=== PATIENT | female | born 1945 | race Caucasian/White ===

== ENCOUNTER 2022-01-04 05:04 | Inpatient (IN) ==
--- NOTE | 2021-12-08 14:09 | PAT Medication Instructions ---
Medication Instructions Date of Service December 08, 2021 Home Medications Medication Instructions Recorded pantoprazole 40 mg tablet,delayed 40 mg PO DAILY #90 tabs 04/18/21 release buspirone 15 mg tablet 15 mg PO TID #270 tabs 07/21/21 tramadol 50 mg tablet 50 mg PO BID PRN pain #60 tabs 10/28/21 trazodone 50 mg tablet 50 mg PO .qhs #90 tabs 11/30/21 pantoprazole 40 mg tablet,delayed release 40 mg PO DAILY buspirone 15 mg tablet 15 mg PO TID tramadol 50 mg tablet 50 mg PO BID PRN ascorbic acid (vitamin C) 1,000 mg tablet 1 g PO QAM cholecalciferol (vitamin D3) 50 mcg (2,000 unit) capsule 50 mcg PO QAM hydroxyzine HCl 25 mg tablet 25 mg PO BID PRN multivitamin 1 tab PO QAM risperidone 0.25 mg tablet 0.25 mg PO .qhs trazodone 50 mg tablet 50 mg PO .qhs alendronate 40 mg tablet 40 mg PO WK amlodipine 10 mg tablet 10 mg PO QAM atorvastatin 40 mg tablet 40 mg PO QPM duloxetine 60 mg capsule,delayed release 60 mg PO QAM hydrochlorothiazide 25 mg tablet 25 mg PO QAM losartan 100 mg tablet 100 mg PO QAM sitagliptin 100 mg tablet (Januvia) 100 mg PO TID Continue as directed pantoprazole 40 mg tablet,delayed release 40 mg PO DAILY alendronate 40 mg tablet 40 mg PO WK (do not take day of surgery) ASK your prescriber and surgeon risperidone 0.25 mg tablet 0.25 mg PO .qhs DO NOT take the morning of surgery ascorbic acid (vitamin C) 1,000 mg tablet 1 g PO QAM cholecalciferol (vitamin D3) 50 mcg (2,000 unit) capsule 50 mcg PO QAM multivitamin 1 tab PO QAM hydrochlorothiazide 25 mg tablet 25 mg PO QAM losartan 100 mg tablet 100 mg PO QAM sitagliptin 100 mg tablet (Januvia) 100 mg PO TID Take morning of surgery With a small sip of water, OTHERWISE NOTHING TO EAT OR DRINK AFTER MIDNIGHT: buspirone 15 mg tablet 15 mg PO TID tramadol 50 mg tablet 50 mg PO BID PRN(if needed) hydroxyzine HCl 25 mg tablet 25 mg PO BID PRN(if needed) amlodipine 10 mg tablet 10 mg PO QAM duloxetine 60 mg capsule,delayed release 60 mg PO QAM Take evening before surgery buspirone 15 mg tablet 15 mg PO TID tramadol 50 mg tablet 50 mg PO BID PRN(if needed) hydroxyzine HCl 25 mg tablet 25 mg PO BID PRN(if needed) trazodone 50 mg tablet 50 mg PO .qhs atorvastatin 40 mg tablet 40 mg PO QPM sitagliptin 100 mg tablet (Januvia) 100 mg PO TID Other Notes If you have any questions please call us at [phone] or [phone] or [phone] or [phone]
--- NOTE | 2021-12-15 13:33 | Anesthesiology Consultation ---
Date of Service December 15, 2021 Assessment & Plan (1) Encounter for pre-operative examination: - check BSG am DOS. - cardiac murmur: 2/6 systolic murmur noted. H/o MVP. No recent echocardiogram. Will request PCP obtain echo prior to surgery. Optimization note completed for PCP, message left requesting return call. - COVID screening: Per assessment on 12/15/2021: Travel screen negative, no known COVID-19 positive contacts or current COVID-19 related symptoms in past 2 weeks. Pt vaccinated. Surgeon arranging preop COVID testing, scheduled 01/02/2022. Awaiting results. Chart Review Chart Review: Pending: Refer to Additional Notes / Consult section and Patient seen in Pre Admission Testing Teaching & Discussion Pre-Anesthesia Teaching/Discussion Notes: Instructed NPO after midnight before surgery, except medications with 15 cc of water. Medication instructions provided according to the PAT guidelines. History Surgery Operation Date: 01/04/22 14:00 Proposed Procedures p Right Total Knee Arthroplasty - Javid Marin MD Height/Weight Height: 4 ft 11 in Weight: 66.1 kg Allergies Allergy/AdvReac Type Severity Reaction Status Date / Time No Known Allergies Allergy Verified 12/16/21 07:59 Medications Home Medications Medication Instructions Recorded Confirmed Last Taken pantoprazole 40 mg tablet,delayed 40 mg PO DAILY #90 tabs 04/18/21 12/16/21 Unknown release buspirone 15 mg tablet 15 mg PO TID #270 tabs 07/21/21 12/16/21 Unknown tramadol 50 mg tablet 50 mg PO BID PRN pain #60 tabs 10/28/21 12/16/21 Unknown ascorbic acid (vitamin C) 1,000 mg 1 g PO QAM 11/08/21 12/16/21 Unknown tablet cholecalciferol (vitamin D3) 50 50 mcg PO QAM 11/08/21 12/16/21 Unknown mcg (2,000 unit) capsule hydroxyzine HCl 25 mg tablet 25 mg PO BID PRN Anxiety 11/08/21 12/16/21 Unknown multivitamin 1 tab PO QAM 11/08/21 12/16/21 Unknown risperidone 0.25 mg tablet 0.25 mg PO .qhs 11/08/21 12/16/21 Unknown alendronate 40 mg tablet 40 mg PO WK 12/05/21 12/16/21 Unknown amlodipine 10 mg tablet 10 mg PO QAM 12/05/21 12/16/21 Unknown atorvastatin 40 mg tablet 40 mg PO QPM 12/05/21 12/16/21 Unknown duloxetine 60 mg capsule,delayed 60 mg PO QAM 12/05/21 12/16/21 Unknown release hydrochlorothiazide 25 mg tablet 25 mg PO QAM 12/05/21 12/16/21 Unknown losartan 100 mg tablet 100 mg PO QAM 12/05/21 12/16/21 Unknown sitagliptin 100 mg tablet (Januvia) 100 mg PO TID 12/05/21 12/16/21 Unknown trazodone 50 mg tablet 50 mg PO .qhs #90 tabs 12/15/21 12/16/21 Unknown Past Medical History Medical History (Updated 12/15/21 @ 13:47 by Sue Perez PA-C) Anxiety Depression Diabetes mellitus oral controlled Hearing deficit no H/A HLD (hyperlipidemia) HTN (hypertension) Mitral valve prolapse denies palpitations, dizziness or lightheadedness Osteoporosis lumbar spine, left hip Thyroid nodule 02/2021 1.2cm left lobe Patient denies h/o stroke, seizures, heart attack, heart failure, blood clots or blood transfusions. Exercise / Class Metabolic Activity II 4-5 Yardwork/Stairs/Walk up hill (denies CP or SOB with 1 FOS) Past Family History Family History Mother Diabetes Hypertension Cancer Father Diabetes Cancer Sister Pancreatic cancer Past Surgical History Surgical History (Updated 12/15/21 @ 13:48 by Sue Perez PA-C) H/O lumpectomy left breast x3-all benign History of colonoscopy Hx of appendectomy Hx of cholecystectomy Past Anesthesia History No Hx of Anesthesia Complications and No Family Hx of Anesthesia Complications History of PONV No Hx of PONV and No Hx of Motion Sickness Social History Smoking Status: Former smoker Do You Dip or Chew Tobacco: No Smoking End Date: ~15 years ago Hx Alcohol Use: Yes alcohol intake frequency: holidays/special occasions only Hx Substance Use: No substance use type: does not use Review of Systems Snoring, denies witnessed apneas. Patient denies chest pain, shortness of breath, dyspnea on exertion, reflux, fever, chills, cough, wheezing, or palpitations. Physical Exam Vital Signs Vitals BP 128/73 P 78 TEMP 98.7 SP02 99% on RA RESP 17 Physical Full cervical extension range of motion without pain TMD 3.5 finger breadths Mallampati Score 3 Dentition: intact, missing right lower side, several caps/crowns-none in front; denies chipped or loose teeth, implants or bridges Lungs: normal respiratory effort. Clear throughout to auscultation, no adventitious breath sounds Cardiac: regular rate and rhythm, grade 2/6 systolic murmur noted Carotid arteries: negative bruit bilat Lab Results Anesthesia Preop Results Results Anesthesia Widget: WBC 8.62 K/ul (4.8-10.8) 12/15/21 Hgb 13.4 g/dl (12.0-16.0) 12/15/21 Hct 38.1 % (34.1-44.9) 12/15/21 Plt 222 K/uL (130-400) 12/15/21 Na 132 mmol/L (136-145) L 12/15/21 K 4.1 mmol/L (3.5-5.1) 12/15/21 Cl 96 mmol/L (98-107) L 12/15/21 CO2 31 mmol/L (21-32) 12/15/21 BUN 18 mg/dl (6-23) 12/15/21 Creat 0.73 mg/dl (0.6-1.2) 12/15/21 Glucose Level 179 mg/dl (70-99(Fasting)) H 12/15/21 PT 10.5 Seconds (9.0-12.0) 12/15/21 PTT 25.5 Seconds (21.0-31.0) 12/15/21 INR 1.0 (0.9-1.1) 12/15/21 HA1c 6.4 % (4.5-5.6) H 12/15/21 Urine Color Yellow 12/15/21 Urine Appearance Clear (Clear) 12/15/21 Urine pH 5.5 (4.5-7.5) 12/15/21 Urine Specific [place] 1.009 (1.000-1.030) 12/15/21 Urine Protein Negative (Negative) 12/15/21 Urine Glucose (UA) Negative (Negative) 12/15/21 Urine Ketones Negative (Negative) 12/15/21 Urine Blood Negative (Negative) 12/15/21 Urine Nitrite Negative (Negative) 12/15/21 Urine Bilirubin Negative (Negative) 12/15/21 Urine Urobilinogen Negative (Negative) 12/15/21 Urine Leukocyte Esterase Negative (Negative) 12/15/21 Blood Type O Positive 12/15/21 Antibody Screen NEGATIVE 12/15/21 Testing Electrocardiogram Date: 12/15/21 NSR, rate 75 bpm Indeterminate axis Chest X-Ray Date: 12/15/21 No pneumothorax. No pleural effusions. The cardiac silhouette is top normal in size. No evidence for pulmonary edema. No focal lung consolidations to suggest pneumonia. Degenerative changes within the thoracolumbar spine. There is an old mild anterior wedge-shaped compression deformity at T12. Mild interstitial thickening at the lung bases. IMPRESSION: No acute process.
--- NOTE | 2021-12-31 20:36 | History & Physical Report ---
Date of Service December 31, 2021 Assessment & Plan (1) Primary osteoarthritis of right knee: Plan: Treatment options discussed with patient. She has failed conservative measures and would like to proceed with surgical intervention. Risks, benefits and alternatives to surgery including but not limited to infection, DVT, pain, stiffness, need for revision surgery, damage to blood vessels, damage to nerves, PE, , were discussed with the patient and they wish to proceed. Plan on right total knee arthroplasty scheduled for [facility] on 01/04/[address] Marin. Will plan on aspirin 81mg BID x 1 mo post op for DVT prophylaxis. Plan on HHPT vs OPPT. All questions answered. F/u post op. History of Present Illness Chief Complaint: Right knee pain Primary Care Provider: Saadia Reza, DO 76 yo female with PMHx significant for HTN, high cholesterol, DM2, MVP who presents with ongoing right knee pain. Pain is interfering with her daily activities. She has failed conservative measures and would like to proceed with knee replacement. Patient denies headaches, sweats, fevers, chills, double vision, blurred vision, cough, sore throat, dysphagia, chest pain, sob, wheezing, n/v/d/c, numbness, tingling, fatigue, urinary symptoms, mood disorders. ROS positive for right knee pain and stiffness. Allergies Allergy/AdvReac Type Severity Reaction Status Date / Time No Known Allergies Allergy Verified 12/19/21 14:55 Home Medications Medication Instructions Recorded Confirmed Type pantoprazole 40 mg tablet,delayed 40 mg PO DAILY #90 tabs 04/18/21 12/19/21 Rx release buspirone 15 mg tablet 15 mg PO TID #270 tabs 07/21/21 12/19/21 Rx tramadol 50 mg tablet 50 mg PO BID PRN pain #60 tabs 10/28/21 12/19/21 Rx ascorbic acid (vitamin C) 1,000 mg 1 g PO QAM 11/08/21 12/19/21 History tablet cholecalciferol (vitamin D3) 50 50 mcg PO QAM 11/08/21 12/19/21 History mcg (2,000 unit) capsule hydroxyzine HCl 25 mg tablet 25 mg PO BID PRN Anxiety 11/08/21 12/19/21 History multivitamin 1 tab PO QAM 11/08/21 12/19/21 History risperidone 0.25 mg tablet 0.25 mg PO .qhs 11/08/21 12/19/21 History alendronate 40 mg tablet 40 mg PO WK 12/05/21 12/19/21 History amlodipine 10 mg tablet 10 mg PO QAM 12/05/21 12/19/21 History atorvastatin 40 mg tablet 40 mg PO QPM 12/05/21 12/19/21 History hydrochlorothiazide 25 mg tablet 25 mg PO QAM 12/05/21 12/19/21 History losartan 100 mg tablet 100 mg PO QAM 12/05/21 12/19/21 History sitagliptin 100 mg tablet (Januvia) 100 mg PO TID 12/05/21 12/19/21 History trazodone 50 mg tablet 50 mg PO .qhs #90 tabs 12/15/21 12/19/21 Rx duloxetine 60 mg capsule,delayed 60 mg PO QAM #90 caps 12/27/21 Rx release Past Med/Surg History Medical History (Updated 12/31/21 @ 20:34 by Bertram Payotn PA-C) Anxiety Depression Diabetes mellitus oral controlled Hearing deficit no H/A HLD (hyperlipidemia) HTN (hypertension) Mitral valve prolapse denies palpitations, dizziness or lightheadedness Osteoporosis lumbar spine, left hip Thyroid nodule US 02/2021 1.2cm left lobe Surgical History (Updated 12/15/21 @ 13:48 by Sue Perez PA-C) H/O lumpectomy left breast x3-all benign History of colonoscopy Hx of appendectomy Hx of cholecystectomy Family History Mother Diabetes Hypertension Cancer Father Diabetes Cancer Sister Pancreatic cancer Social History Smoking Status: Former smoker Second Hand Exposure: No; Hx Alcohol Use: Yes Hx Substance Use: No Preferred Language: Azeri Communication Ability: Effective Visual Impairment: No Limitations Hearing Ability: Hard of Hearing Farmworkers Required: No Beliefs That Will Affect Care: None marital status: Current Living Situation: Family Current Living Situation Comment: Son and his family current occupational status: retired How many Children do You have: 2 Feels Safe at Home: Yes Childhood Exposure to Second-Hand Smoke: Yes caffeine: Yes during the past year weight has: decreased > 10 lbs Physical Activity Frequency: Daily Seatbelt Use: always Sunscreen Use: Yes (sometimes) Assistive Devices: Glasses Review of Systems All systems reviewed & are unremarkable except as noted in HPI & below Physical Exam Constitutional: well developed and well nourished; no acute distress Eyes: PERRL, conjunctivae normal, anicteric sclerae ENMT: external ear and nose normal, oropharynx normal Neck: trachea midline, no thyromegaly Respiratory: normal respiratory effort, lungs clear to auscultation Cardiovascular: RRR, no murmur, no edema Musculoskeletal: right knee: Varus alignment. Mild effusion. Medial joint line and medial and lateral patellar facet tenderness. Positive Fred's, stable to valgus and varus stress. ROM is 0-130 degrees. Skin: no rashes, warm and dry Neurologic: patellar DTR's 2+ bilat, sensation intact Psychiatric: A+Ox3, euthymic affect Results & Data ([facility]) Diagnostic Findings Right knee: Endstage osteoarthritis right knee, bone on bone medial compartment with bone loss medially. There is tricompartmental osteophyte formation.
[2022-01-04] MEDS ORDERED: TRANEXAMIC ACID 1,000 MG **IV Pre-op IV SCH (06:00)
[2022-01-04] MEDS ORDERED: ceFAZolin 1000MG 1,000 MG/7.5 ML SYR IV SCH (06:00)
[2022-01-04] MEDS ORDERED: GABAPENTIN 300 MG CAP PO SCH (06:00)
[2022-01-04] MEDS ORDERED: FAMOTIDINE 20 MG TAB PO SCH (06:00)
[2022-01-04] MEDS ORDERED: CeleBREX 200 MG CAP PO SCH (06:00)
[2022-01-04] MEDS ORDERED: ACETAMINOPHEN 500 MG TAB PO SCH (06:00)
[2022-01-04] MEDS ORDERED: TRANEXAMIC ACID 1,000 MG **IV Intra-op IV SCH (06:00)
[2022-01-04] MEDS ORDERED: METOCLOPRAMIDE HCL 10 MG TABLET PO SCH (06:00)
[2022-01-04] MEDS ORDERED: LR 500ML BOLUS, THEN 15ML/HR IV SCH (06:00)
[2022-01-04] MEDS ORDERED: ROPIVACAINE 0.5% HCL/PF 150 MG, BUPIVACAINE 0.75% MPF 20 ML, EPINEPHrine 30MG/30ML (OR ... INSTIL SCH (06:00)
[2022-01-04] MEDS ORDERED: BUPIVACAINE 0.5 % 5 MG/1 ML PF 10ML VIAL ONE (06:24)
[2022-01-04] MEDS ORDERED: ROPIVACAINE 0.5% 5 MG/ML 30 ML VIAL ONE (06:25)
[2022-01-04] MEDS ORDERED: MIDAZOLAM HCL 1 MG/ML 2ML VIAL ONE (06:58)
[2022-01-04] MEDS ORDERED: fentaNYL citrate 100 MCG/2 ML VIAL ONE (06:58)
[2022-01-04] MEDS ORDERED: ORTHO JOINT ANESTHETIC ONE (07:00)
--- NOTE | 2022-01-04 07:09 | History & Physical Bridge Note ---
Date of Service January 04, 2022 History & Physical Bridge Note I have examined the patient, reviewed the History & Physical and in the interval since the performance of the History & Physical I have noted the following changes of clinical significance: no changes noted
[2022-01-04] MEDS ORDERED: ONDANSETRON INJ 2 MG/ML 2 ML VIAL IV PRN ×2 (07:37→10:46)
[2022-01-04] MEDS ORDERED: ATROPINE SULFATE 0.1 MG/ML 10ML SYR IV PRN (07:37)
[2022-01-04] MEDS ORDERED: PROMETHAZINE HCL 12.5 MG in SODIUM CHLORIDE 0.9% 50 ML IV PRN (07:37)
[2022-01-04] MEDS ORDERED: fentaNYL citrate 100 MCG/2 ML VIAL IV PRN (07:37)
[2022-01-04] MEDS ORDERED: ePHEDrine sulfate 50 MG/ML AMP IV PRN (07:37)
[2022-01-04] MEDS ORDERED: HYDROmorphone INJ 2 MG/ML SYR/VIAL IV PRN (07:37)
[2022-01-04] MEDS ORDERED: PROPOFOL IV EMULSION 10 MG/ML 20 ML VIAL IV ONE (07:43)
[2022-01-04] MEDS ORDERED: ePHEDrine sulfate 50 MG/ML AMP ONE (08:30)
--- NOTE | 2022-01-04 09:24 | Operative Report ---
Post Operative Report Pre & Post Diagnosis Operation Date: 01/04/22 07:15 Pre-Op Diagnosis: Unilateral Primary Osteoarthritis, Right Knee Post-Op Diagnosis: Unilateral Primary Osteoarthritis, Right Knee I identified the patient and participated in the time-out.: Yes Procedure Operation Date: 01/04/22 07:15 Actual Procedures p Right Total Knee Arthroplasty(Right) - Javid Marin MD Surgeon Javid Marin MD Digital Operations Analyst Giuseppe CLEMONS Estimated Blood Loss 3 Findings Consistent with Post-Op Diagnosis Specimens Bone cuts Drains 2 Hemovac Anesthesia Type MAC Spinal Regional Complications none Disposition Disposition: Recovery Room Indications 76-year-old female with bilateral knee osteoarthritis more severe on the right knee with [id number] medial compartment subluxation of the femur medial in the tibia. Description of Procedure Patient was taken to the operating room placed supine on the operating table and anesthetized under spinal MAC regional block anesthesia. Exam under anesthesia demonstrated varus knee no pseudo instability good range of motion 0 through 130 degrees range of motion. A pneumatic tourniquet was placed about the thigh of the right lower extremity. The right lower extremity was prepped and draped in usual sterile fashion. The leg was elevated exsanguinated with an Esmarch bandage and the pneumatic tourniquet was raised to 300 mm mercury. An anterior incision was made across the right knee. The skin was incised longitudinally subcutaneous flaps were elevated and an incision was made through the medial retinaculum extending up into the mid third of the quadriceps tendon and extended down to the medial tibial tubercle. Intra-articular findings demonstrated medial compartment osteoarthritis with [id number] medial compartment with eburnated bone and patellofemoral osteoarthritis with a chronic medial meniscus tear. There were loose bodies noted.. The knee was exposed by excising the infrapatellar fat pad, excising the meniscal remnants and anterior cruciate ligament. Any inflamed synovial tissue was resected. The fat pad over the anterior femur was resected for placement of the component in that area. The lateral synovial bands were release. The femur was exposed. The custom femoral cutting block was pinned in position. We assessed the fit and I did not feel the fit was satisfactory to guarantee appropriate alignment so I used standard instrumentation with an intramedullary drill and the femoral canal and set the distal femoral cut at 5 degree valgus cut with a standard resection. The distal femoral cut was made with the oscillating saw. The size 7, 4-in-1 cutting block was placed. The anterior and posterior chamfer cuts were made. The knee was extended and a subperiosteal peel lateral release was performed around the patella. The patella width was measured and width was reproduced using freehand cut technique. The 32 x 8.5 millimeter symmetrical patella was used. 3 drill holes are made for the pegs. The tibia was exposed. A custom tibial cutting block was positioned and drill holes were made for the cutting guide. Cutting guide was placed and the proximal cut was made with the oscillating saw. All osteophytes were resected. The lamina managing consultant was used to assess ligamentous balance and the ligaments were balanced in extension and flexion. The tibia was reexposed and measured for a size C tibial component. This was externally rotated in line with the tibial tubercle and the fixation pins were drilled. The proximal tibia was fashioned with the drill and punch. The size 7 CR femoral trial was inserted. The trial MC inserts were used. The 12 mm insert gave balanced ligaments through full range of motion. The patella tracked centrally. the trials were removed. The orthomix anesthetic cocktail was injected per protocol. The knee was then copiously irrigated with pulsatile lavage saline solution. The final components were cemented with Refobacin bone cement. The final components were 7 right narrow CR persona femoral component, C tibial component, 12 MC right tibial polyethylene, 32 x 8.5 symmetrical patella. After the cement cured with the knee in full extension the Betadine soak was used per protocol. The knee joint was copiously irrigated with pulsatile lavage saline solution . 2 drains were brought out laterally and connected to a Hemovac. The quadriceps tendon and medial retinaculum were closed with interrupted [id number] #1 Vicryl sutures. The knee was taken through a full range of motion and repair was secure. The subcutaneous tissues were closed with 2-0 Vicryl sutures and skin was closed with henri. A Silverlon sterile dressing was applied and the patient tolerated the procedure well. Giuseppe CLEMONS my physician legal executive assistant, assisted as lpn or medical assistant and was integral part in all aspects of the procedure. He assisted in soft tissue retraction, instrument management ,leg positioning, the closure and will participate in the postoperative care of the patient. I attest to the content of the Intraoperative Record and any orders documented therein. Any exceptions are noted below.
--- NOTE | 2022-01-04 10:17 | XRay Report ---
XR knee RT 1 or 2V routine CLINICAL HISTORY: Surgical Post Op TECHNIQUE: 2 views of the right knee were obtained. Comparison: None available at the time of this dictation. FINDINGS: Patient is status post total knee arthroplasty with expected postsurgical changes including soft tiss ue swelling and subcutaneous emphysema. No periarticular lucency or hardware fracture is seen. IMPRESSION: Expected postoperative appearance status post placement of total knee arthroplasty. ACT 112: Negative or not required by law. Electronically signed by: Tacos Rodriguez M.D. 01/04/2022 10:16 AM
[2022-01-04] MEDS ORDERED: bisacodyL 10 MG SUPP PR PRN (10:46)
[2022-01-04] MEDS ORDERED: PHARMACY GLYCEMIC MGMT CONSULT PRN (10:46)
[2022-01-04] MEDS ORDERED: MAGNESIUM HYDROXIDE SUSP 30 ML UDC PO PRN (10:46)
[2022-01-04] MEDS ORDERED: NALOXONE HCL 0.4 MG/1 ML VIAL/CARP IV PRN (10:46)
[2022-01-04] MEDS ORDERED: HYDROmorphone INJ 0.5 MG/0.5 ML SYR IV PRN (10:46)
[2022-01-04] MEDS: SODIUM CHLORIDE 0.9% 1000ML 1,000 ML IV SCH ×2 (11:37→20:14)
[2022-01-04] MEDS ORDERED: GLUCOSE 10 TAB/TUBE PO PRN (11:45)
[2022-01-04] MEDS ORDERED: DEXTROSE 50% 50 ML SYRINGE IV PRN (11:45)
[2022-01-04] MEDS ORDERED: GLUCOSE 40% GEL 15 GM TUBE PO PRN (11:45)
[2022-01-04] MEDS ORDERED: CARBOHYDRATES FOR HYPOGLYCEMIA PO PRN (11:45)
[2022-01-04] MEDS ORDERED: GLUCAGON FOR INJ 1 MG VIAL IM PRN (11:45)
--- NOTE | 2022-01-04 12:06 | Pharmacy Report ---
Pharmacy Glycemic Short Note 2 - Date of Service January 04, 2022 - Glycemic Short BSG Results (Last 24 hours): 01/04/22 01/04/22 01/04/22 05:36 09:35 11:45 POC Glucose 144 H 144 H 153 H OUTPATIENT ANTIDIABETIC REGIMEN: * Sitagliptin 100 mg PO TID HbA1c: 6.4% (12/15/21) ASSESSMENT: * is a 76 year old female s/p right TKA POD #0 * No perioperative steroids administered * Well-controlled T2DM as an outpatient (A1c of 6.4% on sitagliptin only) * Preop BSG of 144 mg/dL and postop BSG of 153 mg/dL * Given elevated fasting BSG, will give conservative basal dose x 1 today with weight-based stress of 2 bolus PLAN FOR INPATIENT GLYCEMIC CONTROL: * Hold outpatient oral diabetes medications * Consider restarting tomorrow morning * Basal insulin * Lantus 7 units SQ x 1 (~0.1 unit/kg) * Bolus insulin * NovoLog per scale ACHS or Q6hrs while NPO * Goal Range: Low 110 mg/dL - High 140 mg/dL * Correction Factor: 35 mg/dL/unit * Nutritional / Prandial insulin per carb ratio of 1 unit per 12 grams CHO consumed
--- NOTE | 2022-01-04 12:14 | Anesthesiology Progress Note ---
Date of Service January 04, 2022 Anesthesia Post Procedure Vital Signs Vital Signs: Temp Pulse Pulse Resp BP Pulse Ox O2 Del Method 01/04/22 11:30 36.2 C L 71 18 142/68 H 100 Room Air 01/04/22 11:00 36.5 C 80 13 109/61 97 Room Air 01/04/22 10:45 36.5 C 77 13 115/54 L 98 Room Air 01/04/22 10:30 36.5 C 74 13 119/59 L 98 Room Air 01/04/22 10:20 74 12 119/55 L 99 Room Air 01/04/22 10:10 82 14 119/61 97 Room Air 01/04/22 10:00 74 18 120/66 99 Room Air 01/04/22 09:50 73 12 130/66 98 Nasal Cannula 01/04/22 09:40 73 14 129/78 100 Room Air 01/04/22 09:34 36.8 C 81 16 124/82 99 Room Air 01/04/22 05:47 36.8 C 87 20 167/69 H 100 Room Air O2 Flow Rate 01/04/22 11:30 01/04/22 11:00 01/04/22 10:45 01/04/22 10:30 01/04/22 10:20 01/04/22 10:10 01/04/22 10:00 01/04/22 09:50 3 01/04/22 09:40 01/04/22 09:34 01/04/22 05:47 Pain Intensity Right Knee: Pain Intensity: 0 Transfer of Care Handoff Completed per policy Notes Mental Status: alert / awake / arousable and participated in evaluation Nausea / Vomiting: adequately controlled Pain: adequately controlled Airway Patency, RR, SpO2: stable & adequate BP & HR: stable & adequate Hydration State: stable & adequate Neuraxial Anesthesia: was administered and sensory block is resolving Anesthetic Complications: no major complications apparent and Pt Satisfied with anesthetic care
[2022-01-04] MEDS ORDERED: LANTUS PER UNIT CHARGE SQ ONE ×2 (12:15→16:30)
[2022-01-04] MEDS: INSULIN ASPART PER UNIT SC SCH ×3 (12:46→21:03)
[2022-01-04] MEDS ORDERED: SITagliptin PHOSPHATE 100 MG TAB PO SCH (14:00)
[2022-01-04] MEDS: ACETAMINOPHEN 500 MG TAB PO SCH ×2 (14:09→21:08)
[2022-01-04] MEDS: busPIRone 15 MG TAB PO SCH ×2 (14:09→21:09)
[2022-01-04] MEDS: ceFAZolin 1000MG 1,000 MG/7.5 ML SYR IV SCH (16:46)
[2022-01-04] MEDS: hydrOXYzine HCl 25 MG TAB PO PRN (21:05)
[2022-01-04] MEDS: ASPIRIN 81 MG ECTAB PO SCH (21:07)
[2022-01-04] MEDS: risperiDONE 0.5 MG TABLET PO SCH (21:08)
[2022-01-04] MEDS: ATORVASTATIN 40 MG TAB PO SCH (21:09)
[2022-01-04] MEDS: DOCUSATE SODIUM 100 MG CAP PO SCH (21:09)
[2022-01-04] MEDS: SENNA 8.6 MG TAB PO SCH (21:09)
[2022-01-04] MEDS: traZODone HCL 50 MG TAB PO SCH (21:12)
[2022-01-05] MEDS: ceFAZolin 1000MG 1,000 MG/7.5 ML SYR IV SCH (00:28)
[2022-01-05] MEDS: oxyCODONE HCL IR 5 MG TAB (IMMEDIATE RELEASE) PO PRN ×3 (04:32→18:05)
[2022-01-05] MEDS: ACETAMINOPHEN 500 MG TAB PO SCH ×3 (05:39→21:16)
[2022-01-05 06:22] LABS: Hematocrit (blood only) 30.6 % (34.1-44.9); Hemoglobin 10.5 g/dl (12.0-16.0); Mean Corpuscular Hemoglobin 30.2 pg (25.0-34.0); Mean Corpuscular Hgb Conc 34.3 g/dL (32.0-36.0); Mean Corpuscular Volume 87.9 fL (80.0-100.0); Mean Platelet Volume 9.1 fL (9.4-12.3); Platelet Count 170 K/uL (130-400); RDW Coefficient of Variation 12.1 % (11.5-14.5); RDW Standard Deviation 38.9 fL (36.4-46.3); Red Blood Count 3.48 M/uL (3.93-5.22); White Blood Count 9.26 K/ul (4.8-10.8)
[2022-01-05 06:50] LABS: BUN Creatinine Ratio 23.4 (10-20); Calcium 8.2 mg/dl (8.5-10.1); Creatinine Clr Calc Pharmacy 63.7 ml/min; Est GFR (African American) 101.9 ml/min; Est GFR (Non-African American) 87.9 ml/min; Potassium 3.7 mmol/L (3.5-5.1)
[2022-01-05] MEDS: PANTOprazole 40 MG TAB PO SCH (07:26)
[2022-01-05] MEDS: DULoxetine HCL 60 MG CAP PO SCH (07:26)
[2022-01-05] MEDS: amLODIPine BESYLATE 5 MG TAB PO SCH (07:26)
[2022-01-05] MEDS: CHOLECALCIFEROL 1,000 UNITS 25 MCG TAB PO SCH (07:26)
[2022-01-05] MEDS: busPIRone 15 MG TAB PO SCH ×3 (07:27→21:17)
[2022-01-05] MEDS: ASPIRIN 81 MG ECTAB PO SCH ×2 (07:27→21:16)
[2022-01-05] MEDS: LOSARTAN POTASSIUM 50 MG TAB PO SCH (07:27)
[2022-01-05] MEDS: MULTIVITAMIN TAB PO SCH (07:27)
[2022-01-05] MEDS: ASCORBIC ACID 500 MG TAB PO SCH (07:27)
[2022-01-05] MEDS: DOCUSATE SODIUM 100 MG CAP PO SCH ×2 (07:28→21:17)
--- NOTE | 2022-01-05 07:45 | Hospitalist Consultation ---
Date of Consultation January 05, 2022 Assessment & Plan (1) Primary osteoarthritis of right knee: POD #1 s/p RIGHT TKA with Dr Marin. EBL 3 hgb 13.4--> 10.4 acute blood loss anemia from surgery and dilutional from IVF PT/OT/pain management/bowel regimen per primary service ASA 81mg BID for DVT prophylaxis ordered Patient hopeful for rehab at [place] -> has not yet seen therapy but lives alone and worried son won't be able to stay with her 18/12 (2) Hyponatremia: chronic, ?related to HCTZ use, PCP notes possible consider decreasing dose to 12.5mg if persistant TSH wnl earlier this year ECHO normal recently, no evidence of heart failure on exam Could also have contributions from tramadol use as rx for 50mg BID prn on home meds Na Will decrease HCTZ for am to 12.5mg and rec continue that dose at discharge for now BMP in AM (3) HTN (hypertension): BP stable but borderline lower side Was given HCTZ 25mg, losartan 100mg and amlodipine 10mg daily at ~730 am scheduled for 9 No lightheaded/dizziness reported decreased HCTZ for am Monitor (4) HLD (hyperlipidemia): Remains on atorvastatin 40mg HS (5) Diabetes mellitus: Last A1c 6.28 November 2021 On Januvia 100mg TID at home, however did not prior overdose attempt as below ISS scale ordered while inpatient, BSGs acceptable (6) Depression: anxiety and depression -- stable except worried about not qualifying for rehab of note, hospitalized at [facility] from 10/29-11/07 due to increased depression after attempting overdose on Januvia Continues on cymbatla 60mg daily, buspar 10mg TID, risperdal 0.25mg HS, hyd roxyzine 25mg BID prn, trazodone 50mg HS (7) Anxiety: as above (8) Thyroid nodule: stable nodule on imaging last year TSH wnl 0.605 May 2021 states she has f/u US for monitoring scheduled in February with PCP Short. also with hx GERD, on protonix 40mg daily Also has +murmur, hx MVP --> echo outpatient prior to surgery acceptable no signif valvular heart disease Plan Thank you for allowing hospitalist to participate in the care of Ms Handley. Hospitalist will chart check in AM/see if needed if remains inpatient Please call with any questions/concerns. Supervising Physician Co-Signing Physician Notes PA Supervision Note: I personally saw and examined the patient. I verified all dixon points and agree with DEONTE Perkins with the following exceptions and/or additions: S-patient feeling much better in the evening after receiving 2 oxycodones instead of 1. Pain is controlled. She is ambulating to and from the bathroom with a rolling walker on her own and is feeling like she could go home tomorrow with home health. Denies any other concerns O- Vitals reviewed Gen: AAOx3, NAD HEENT: Anicteric sclerae, EOMI CV: RRR no mgr nl S1S2 Pulm: CTAB no wcr Abd: +BS soft NT ND no masses or hernias Ext: Right lower extremity in Logan wrap, drain in place draining bloody fluid Skin: No rashes, warm/dry Neuro: Full strength throughout Laboratory values reviewed A/C-89-pvfz-old female here with right TKA, hospitalist consult for medical management Patient is doing very well Plan outlined as above Hospitalist service will sign off at this time History of Present Illness Reason for Consultation: medical management Requesting Physician: Dr Marin Attending Physician: Javid Marin MD History of Present Illness 76 yo female with PMHx significant for HTN, HLD, DM, depression/anxiety, GERD, hyponatremia, hx MVP presented for RIGHT total knee arthroplasty with Dr Marin on 01/04. Seen in room 315 POD#1, doing well. Sitting up in chair, has not yet worked with therapy but she is hopeful for some rehab as lives alone and son not able to be there 18/12. Pain controlled but a little sore today. States eating/drinking no issue and passing gas but only effective is her chewy metamucil and will place order can take her home dose. Had prior hospitalization with blow outs and had been refusing stool softeners. Got BP meds this morning and not lightheaded/dizziness currently. Discussed would reduce HCTZ to 12.5mg for AM and at d/c given low Na and borderline lower BPs as she states her BPs have been much better. No fever/chills, chest pain, shortness of breath, abdominal pain, nausea or vomiting at present time. Will see how she does with therapy but if rec'd rehab will touch base with CM. Questions/concerns addressed at this time. Allergies Allergy/AdvReac Type Severity Reaction Status Date / Time No Known Allergies Allergy Verified 01/04/22 05:33 Home Medications Medication Instructions Recorded Confirmed Type pantoprazole 40 mg tablet,delayed 40 mg PO DAILY #90 tabs 04/18/21 01/04/22 Rx release buspirone 15 mg tablet 15 mg PO TID #270 tabs 07/21/21 01/04/22 Rx tramadol 50 mg tablet 50 mg PO BID PRN pain #60 tabs 10/28/21 01/04/22 Rx ascorbic acid (vitamin C) 1,000 mg 1 g PO QAM 11/08/21 01/04/22 History tablet cholecalciferol (vitamin D3) 50 50 mcg PO QAM 11/08/21 01/04/22 History mcg (2,000 unit) capsule hydroxyzine HCl 25 mg tablet 25 mg PO BID PRN Anxiety 11/08/21 01/04/22 History multivitamin 1 tab PO QAM 11/08/21 01/04/22 History risperidone 0.25 mg tablet 0.25 mg PO .qhs 11/08/21 01/04/22 History alendronate 40 mg tablet 40 mg PO WK 12/05/21 01/04/22 History amlodipine 10 mg tablet 10 mg PO QAM 12/05/21 01/04/22 History atorvastatin 40 mg tablet 40 mg PO QPM 12/05/21 01/04/22 History hydrochlorothiazide 25 mg tablet 25 mg PO QAM 12/05/21 01/04/22 History losartan 100 mg tablet 100 mg PO QAM 12/05/21 01/04/22 History sitagliptin 100 mg tablet (Januvia) 100 mg PO DAILY 12/05/21 01/05/22 History trazodone 50 mg tablet 50 mg PO .qhs #90 tabs 12/15/21 01/04/22 Rx duloxetine 60 mg capsule,delayed 60 mg PO QAM #90 caps 12/27/21 01/04/22 Rx release acetaminophen 500 mg tablet 1,000 mg PO Q8 14 days #84 tabs 01/05/22 Rx (Tylenol Extra Strength) aspirin 81 mg tablet,delayed 81 mg PO BID 30 days #60 tabs 01/05/22 Rx release oxycodone 5 mg tablet 5 mg PO Q4H PRN pain #30 tabs 01/05/22 Rx polyethylene glycol 3350 17 gram 17 g PO DAILY PRN constipation #5 01/05/22 Rx oral powder packet (Miralax) ea Patient History Medical History Anxiety Depression Diabetes mellitus oral controlled Hearing deficit no H/A HLD (hyperlipidemia) HTN (hypertension) Mitral valve prolapse denies palpitations, dizziness or lightheadedness Osteoporosis lumbar spine, left hip Thyroid nodule US 02/2021 1.2cm left lobe Surgical History H/O lumpectomy left breast x3-all benign History of colonoscopy Hx of appendectomy Hx of cholecystectomy Family History Mother Diabetes Hypertension Cancer Father Diabetes Cancer Sister Pancreatic cancer Social History Smoking Status: Former smoker Smoking End Date: ~15 years ago; Second Hand Exposure: No; Do You Dip or Chew Tobacco: No; Tobacco Cessation Education Requested by Patient: No Hx Alcohol Use: Yes Hx Substance Use: No Preferred Language: Kiswahili Communication Ability: Effective Visual Impairment: No Limitations Hearing Ability: Hard of Hearing Senior Buyer Planner Required: No Beliefs That Will Affect Care: None marital status: Current Living Situation: Family Current Living Situation Comment: Son and his family current occupational status: retired How many Children do You have: 2 Other Information That Helps Us Care for You: No Feels Safe at Home: Yes Safety Concerns: Feels Safe At This Time Childhood Exposure to Second-Hand Smoke: Yes caffeine: Yes during the past year weight has: decreased > 10 lbs Physical Activity Frequency: Daily Seatbelt Use: always Sunscreen Use: Yes (sometimes) Assistive Devices: Walker Review of Systems Review of Systems: All systems reviewed & are unremarkable except as noted in HPI & below Physical Exam Physical Exam: General: WD/WN elderly female sitting up in chair, NAD HEENT; pupils equal and reactive, mmm, trachea midline without deviation Resp: CTAB, no w/c/r, on room air CV: RRR, faint murmur, no rub/gallop, no calf tenderness, pulses palpable GI: +BS, soft, nontender : no siegel MSK/Neuro: RLE with logan wrap/dressing c/d/i, hemovac functioning, pulses palable, cap refill wnl Psych: aox3, pleasant and cooperative but anxious if does too well for rehab Results & Data Results & Data ([facility]) Vital Signs (Past 12 Hours) Vital Signs Temp Pulse Pulse Resp BP Pulse Ox O2 Del Method 01/05/22 07:00 36.7 C 82 16 104/57 L 93 Room Air 01/05/22 02:19 36.7 C 80 16 136/72 97 Room Air 01/04/22 22:19 36.9 C 73 16 122/71 92 Room Air Laboratory Results 01/05/22 01/05/22 01/05/22 Range/Units 08:13 05:55 05:55 WBC 9.26 (4.8-10.8) K/ul RBC 3.48 L (3.93-5.22) M/uL Hgb 10.5 L (12.0-16.0) g/dl Hct 30.6 L (34.1-44.9) % MCV 87.9 (80.0-100.0) fL MCH 30.2 (25.0-34.0) pg MCHC 34.3 (32.0-36.0) g/dL RDW Std Deviation 38.9 (36.4-46.3) fL RDW Coeff of Vahe 12.1 (11.5-14.5) % Plt Count 170 (130-400) K/uL MPV 9.1 L (9.4-12.3) fL Sodium 134 L (136-145) mmol/L Potassium 3.7 (3.5-5.1) mmol/L Chloride 103 (98-107) mmol/L Carbon Dioxide 26 (21-32) mmol/L Anion Gap 5 (3-11) BUN 15 (6-23) mg/dl Creatinine 0.64 (0.6-1.2) mg/dl Est Cr Clr Drug Dosing 63.7 ml/min Est GFR ( Amer) 101.9 ml/min Est GFR (Non-Af Amer) 87.9 ml/min BUN/Creatinine Ratio 23.4 H (10-20) Glucose 162 H (70-99(Fasting)) mg/dl POC Glucose 175 H (70-99) mg/dl Calcium 8.2 L (8.5-10.1) mg/dl 01/04/22 01/04/22 01/04/22 Range/Units 20:56 16:56 11:45 WBC (4.8-10.8) K/ul RBC (3.93-5.22) M/uL Hgb (12.0-16.0) g/dl Hct (34.1-44.9) % MCV (80.0-100.0) fL MCH (25.0-34.0) pg MCHC (32.0-36.0) g/dL RDW Std Deviation (36.4-46.3) fL RDW Coeff of Vahe (11.5-14.5) % Plt Count (130-400) K/uL MPV (9.4-12.3) fL Sodium (136-145) mmol/L Potassium (3.5-5.1) mmol/L Chloride (98-107) mmol/L Carbon Dioxide (21-32) mmol/L Anion Gap (3-11) BUN (6-23) mg/dl Creatinine (0.6-1.2) mg/dl Est Cr Clr Drug Dosing ml/min Est GFR ( Amer) ml/min Est GFR (Non-Af Amer) ml/min BUN/Creatinine Ratio (10-20) Glucose (70-99(Fasting)) mg/dl POC Glucose 85 96 153 H (70-99) mg/dl Calcium (8.5-10.1) mg/dl 01/04/22 Range/Units 09:35 WBC (4.8-10.8) K/ul RBC (3.93-5.22) M/uL Hgb (12.0-16.0) g/dl Hct (34.1-44.9) % MCV (80.0-100.0) fL MCH (25.0-34.0) pg MCHC (32.0-36.0) g/dL RDW Std Deviation (36.4-46.3) fL RDW Coeff of Vahe (11.5-14.5) % Plt Count (130-400) K/uL MPV (9.4-12.3) fL Sodium (136-145) mmol/L Potassium (3.5-5.1) mmol/L Chloride (98-107) mmol/L Carbon Dioxide (21-32) mmol/L Anion Gap (3-11) BUN (6-23) mg/dl Creatinine (0.6-1.2) mg/dl Est Cr Clr Drug Dosing ml/min Est GFR ( Amer) ml/min Est GFR (Non-Af Amer) ml/min BUN/Creatinine Ratio (10-20) Glucose (70-99(Fasting)) mg/dl POC Glucose 144 H (70-99) mg/dl Calcium (8.5-10.1) mg/dl Diagnostic Findings Knee X-Ray 01/04/22 09:40 XR knee RT 1 or 2V routine CLINICAL HISTORY: Surgical Post Op TECHNIQUE: 2 views of the right knee were obtained. Comparison: None available at the time of this dictation. FINDINGS: Patient is status post total knee arthroplasty with expected postsurgical changes including soft tissue swelling and subcutaneous emphysema. No periarticular lucency or hardware fracture is seen. IMPRESSION: Expected postoperative appearance status post placement of total knee arthroplasty. ACT 112: Negative or not required by law. Electronically signed by: Tacos Rodriguez M.D. 01/04/2022 10:16 AM PG Care Time/CCT Total # of Minutes Spent Total Time Spent with Patient: Total time spent is greater than 50% in coordination of care (as documented) at patient's floor/unit and/or counseling patient: Coding Level of Care Code 57464 Office/OBS Consult Lvl 3 Diagnoses Primary osteoarthritis of right knee M17.11 Hyponatremia E87.1 HTN (hypertension) I10 HLD (hyperlipidemia) E78.5 Diabetes mellitus E11.9 Depression F32.A Anxiety F41.9 Thyroid nodule E04.1
--- NOTE | 2022-01-05 07:45 | Orthopedic Progress Note ---
Date of Service January 05, 2022 Assessment & Plan (1) Primary osteoarthritis of right knee: Plan: Postop day 1 status post right total knee arthroplasty. PT/OT protocols. Weightbearing as tolerated. DVT prophylaxis-aspirin p.o. twice daily, Adriana, JACQUI aleman. Pain management as written. DC planning-patient requesting [facility]. We discussed the possibilities of no bed availability or authorization problems. Patient does seem agreeable to have home health services if needed. Admission and Anticipated Discharge Date Admission Date: January 04, 2022 Subjective Postop day 1 Patient sleeping as I arrived in the room. Easily awoken. She is having little bit more pain this morning than she did yesterday however she states that it is tolerable and not severe. He states that she has been able to get up to the bathroom regularly with help from nursing. Patient states that she would like to go to [facility] if possible at the time of her discharge. We discussed that it would depend on her progression in physical therapy and authorization from insurance. Patient understands. Physical Exam Physical Exam: Dressings are clean, dry, and intact. Calves are soft nontender. Neurovascular intact. Toes are mobile. Hemovac drainage was 100 mL from the previous shift. Results & Data ([facility]) Vital Signs (Past 12 Hours) Vital Signs Temp Pulse Pulse Resp BP Pulse Ox O2 Del Method 01/05/22 07:00 36.7 C 82 16 104/57 L 93 Room Air 01/05/22 02:19 36.7 C 80 16 136/72 97 Room Air 01/04/22 22:19 36.9 C 73 16 122/71 92 Room Air Laboratory Results Laboratory Results WBC 9.26 K/ul (4.8-10.8) 01/05/22 05:55 RBC 3.48 M/uL (3.93-5.22) L 01/05/22 05:55 Hgb 10.5 g/dl (12.0-16.0) L 01/05/22 05:55 Hct 30.6 % (34.1-44.9) L 01/05/22 05:55 MCV 87.9 fL (80.0-100.0) 01/05/22 05:55 MCH 30.2 pg (25.0-34.0) 01/05/22 05:55 MCHC 34.3 g/dL (32.0-36.0) 01/05/22 05:55 RDW Std Deviation 38.9 fL (36.4-46.3) 01/05/22 05:55 RDW Coeff of Vahe 12.1 % (11.5-14.5) 01/05/22 05:55 Plt Count 170 K/uL (130-400) 01/05/22 05:55 MPV 9.1 fL (9.4-12.3) L 01/05/22 05:55 Sodium 134 mmol/L (136-145) L 01/05/22 05:55 Potassium 3.7 mmol/L (3.5-5.1) 01/05/22 05:55 Chloride 103 mmol/L (98-107) 01/05/22 05:55 Carbon Dioxide 26 mmol/L (21-32) 01/05/22 05:55 Anion Gap 5 (3-11) 01/05/22 05:55 BUN 15 mg/dl (6-23) 01/05/22 05:55 Creatinine 0.64 mg/dl (0.6-1.2) 01/05/22 05:55 Est Cr Clr Drug Dosing 63.7 ml/min 01/05/22 05:55 Est GFR ( Amer) 101.9 ml/min 01/05/22 05:55 Est GFR (Non-Af Amer) 87.9 ml/min 01/05/22 05:55 BUN/Creatinine Ratio 23.4 (10-20) H 01/05/22 05:55 Glucose 162 mg/dl (70-99(Fasting)) H 01/05/22 05:55 POC Glucose 85 mg/dl (70-99) 01/04/22 20:56 Calcium 8.2 mg/dl (8.5-10.1) L 01/05/22 05:55 SARS-CoV-2, RNA, NAAT NEGATIVE (NEGATIVE) 01/04/22 05:25 Impressions Knee X-Ray 01/04/22 09:40 XR knee RT 1 or 2V routine CLINICAL HISTORY: Surgical Post Op TECHNIQUE: 2 views of the right knee were obtained. Comparison: None available at the time of this dictation. FINDINGS: Patient is status post total knee arthroplasty with expected postsurgical changes including soft tissue swelling and subcutaneous emphysema. No periarticular lucency or hardware fracture is seen. IMPRESSION: Expected postoperative appearance status post placement of total knee arthroplasty. ACT 112: Negative or not required by law. Electronically signed by: Tacos Rodriguez M.D. 01/04/2022 10:16 AM
[2022-01-05] MEDS ORDERED: LANTUS PER UNIT CHARGE SQ ONE (08:30)
[2022-01-05] MEDS ORDERED: hydroCHLOROthiazide 25 MG TAB PO SCH (09:00)
[2022-01-05] MEDS: INSULIN ASPART PER UNIT SC SCH ×4 (09:15→21:17)
--- NOTE | 2022-01-05 11:04 | Pharmacy Report ---
Pharmacy Glycemic Short Note 2 - Date of Service January 05, 2022 - Glycemic Short BSG Results (Last 24 hours): 01/04/22 01/04/22 01/04/22 11:45 16:56 20:56 Glucose POC Glucose 153 H 96 85 01/05/22 01/05/22 05:55 08:13 Glucose 162 H POC Glucose 175 H OUTPATIENT ANTIDIABETIC REGIMEN: * Sitagliptin 100 mg PO daily HbA1c: 6.4% (12/15/21) ASSESSMENT: 01/05/22 * Patient refused basal insulin yesterday, received 5 units of Novolog and BSGs were well-controlled postoperatively at 96 and 85 mg/dL * Fasting BSG of 175 mg/dL, basal insulin ordered again for today and will loosen Novolog parameters in light of tight control last evening 01/04/22 * MH is a 76 year old female s/p right TKA POD #0 * No perioperative steroids administered * Well-controlled T2DM as an outpatient (A1c of 6.4% on sitagliptin only) * Preop BSG of 144 mg/dL and postop BSG of 153 mg/dL * Given elevated fasting BSG, will give conservative basal dose x 1 today with weight-based stress of 2 bolus PLAN FOR INPATIENT GLYCEMIC CONTROL: * Hold outpatient oral diabetes medications * Basal insulin * Lantus 7 units SQ x 1 (~0.1 unit/kg) * Bolus insulin * NovoLog per scale ACHS or Q6hrs while NPO * Goal Range: Low 110 mg/dL - High 140 mg/dL * Correction Factor: 45 mg/dL/unit * Nutritional / Prandial insulin per carb ratio of 1 unit per 15 grams CHO consumed
[2022-01-05] MEDS: traZODone HCL 50 MG TAB PO SCH (21:15)
[2022-01-05] MEDS: ATORVASTATIN 40 MG TAB PO SCH (21:16)
[2022-01-05] MEDS: risperiDONE 0.5 MG TABLET PO SCH (21:16)
[2022-01-05] MEDS: SENNA 8.6 MG TAB PO SCH (21:17)
[2022-01-06] MEDS: ACETAMINOPHEN 500 MG TAB PO SCH ×3 (06:17→21:40)
[2022-01-06 07:05] LABS: BUN Creatinine Ratio 17.4 (10-20); Calcium 9.2 mg/dl (8.5-10.1); Creatinine Clr Calc Pharmacy 59.1 ml/min; Est GFR (African American) 99.4 ml/min; Est GFR (Non-African American) 85.8 ml/min; Magnesium 1.5 mg/dl (1.7-2.4); Potassium 3.2 mmol/L (3.5-5.1)
[2022-01-06] MEDS ORDERED: POTASSIUM CHLORIDE CRTAB 20 MEQ TABCR PO STA (07:19)
--- NOTE | 2022-01-06 07:21 | Hospitalist Progress Note ---
Date of Service January 06, 2022 Assessment & Plan (1) Primary osteoarthritis of right knee: Plan: POD #2 s/p RIGHT TKA with Dr Marin. EBL 3 hgb 13.4--> 10.4 acute blood loss anemia from surgery and dilutional from IVF PT/OT/pain management/bowel regimen per primary service ASA 81mg BID for DVT prophylaxis ordered Electrolyte abnormalities being addressed as below --> Na 126, K 3.2, Mag 1.5 Patient hopeful for rehab at [place] however would have to stay 3 nights. Discused [facility], she did not want to go. CM to discuss with patient this afternoon, but per PT needing another day to ensure stable on feet but otherwise ortho planning home with home therapy (2) Hyponatremia: Plan: chronic, ?related to HCTZ use, PCP notes possible consider decreasing dose to 12.5mg if persistent TSH wnl earlier this year ECHO normal recently, no evidence of heart failure on exam Could also have contributions on admit from tramadol use as rx for 50mg BID prn on home meds, psychiatric as well Na decreased to 126 from 134, along with K 3.2 (HCTZ 25mg given with Na 134 01/05) --> will discontinue the HCTZ moving forward, BP stable currently. 40meq Kcl PO x 1 now +NSS @ 80cc/hr for 500cc and repeat labs this afternoon Mag checked as well, 1.5 --> ordered 3gm IV mag Monitor repeat labs (3) HTN (hypertension): Plan: BP stable 145/66 Was given HCTZ 25mg, losartan 100mg and amlodipine 10mg daily at ~730 am scheduled for 9 on 01/06 with Na already at 134 No lightheaded/dizziness Discussed DISCONTINUE HCTZ moving forward Monitor BP off meds but she states her PCP thought about discontinuing this as well Discussed can expect some LE edema from amlodipine and to monitor/stockings (4) HLD (hyperlipidemia): Plan: Remains on atorvastatin 40mg HS (5) Diabetes mellitus: Plan: Last A1c 6.28 November 2021 On Januvia 100mg at home, however did have prior overdose attempt as below ISS scale ordered while inpatient, pharmacy managing (6) Depression: Plan: anxiety and depression -- stable except worried about not qualifying for rehab of note, hospitalized at [facility] from 10/29-11/07 due to increased depression after attempting overdose on Januvia Continues on cymbatla 60mg daily, buspar 10mg TID, risperdal 0.25mg HS, hydroxyzine 25mg BID prn, trazodone 50mg HS (7) Anxiety: Plan: as above, appears stable (8) Thyroid nodule: Plan: stable nodule on imaging last year TSH wnl 0.605 May 2021 states she has f/u US for monitoring scheduled in February with PCP Libia. also with hx GERD, on protonix 40mg daily Also has +murmur, hx MVP --> echo outpatient prior to surgery acceptable no signif valvular heart disease (9) Hypomagnesemia: Plan: 3gm IV for mag 1.5 repeat lab ordered (10) Hypokalemia: Plan: 2nd to HCTZ use, replacement ordered/hctz discontinued, monitor repeat labs Plan Thank you for allowing hospitalist to participate in the care of Ms Handley. Will follow Admission and Anticipated Discharge Date Admission Date: January 04, 2022 Supervising Physician Co-Signing Physician Notes DEONTE Supervision Note: I did not personally see or examine the patient today, but I verified all dixon points of DENOTE Perkins's assessment and plan with the following exceptions/additions: repeat Na+ same at 126 give another 1L of NS and follow labs in AM Subjective Patient evaluated this morning. Doing much better. Pain controlled with ordered medications, she is passing gas and working on having a bowel movement. Denies any lightheaded/dizziness, chest pain or shortness of breath. Discussed Na level and discontinued HCTZ and would not continue at discharge. Also discussed low K and Mag and replacement ordered which will also hopefully assist with bowel movement. Also will repeat labs this afternoon to ensure improving. Per therapy/ortho, needing additional day of rehab, then planning home with family and home health. Questions/concerns addressed at this time. Review of Systems Review of Systems: All systems reviewed & are unremarkable except as noted in HPI & below Physical Exam Physical Exam: General: WD/WN elderly female sitting up in chair eating breakfast, NAD HEENT; pupils equal and reactive, mmm, trachea midline without deviation Resp: CTAB, no w/c/r, 98% on RA CV: RRR, faint systolic murmur, no rub/gallop, calves and ankles thin/no edema, no calf tenderness, pulses palpable, cap refill wnl GI: +BS, soft, nontender : no siegel MSK/Neuro: RLE with daniella wrap/dressing c/d/i, hemovac since removed this morning, pulses palable, cap refill wnl Psych: aox3, pleasant and cooperative Results & Data Results & Data ([facility]) Vital Signs (Past 12 Hours) Vital Signs Temp Pulse Resp BP Pulse Ox O2 Del Method 01/05/22 23:33 36.9 C 78 17 130/63 93 Room Air Laboratory Results 01/06/22 01/05/22 01/05/22 Range/Units 06:04 20:41 16:57 Sodium 126 L (136-145) mmol/L Potassium 3.2 L (3.5-5.1) mmol/L Chloride 91 L (98-107) mmol/L Carbon Dioxide 27 (21-32) mmol/L Anion Gap 8 (3-11) BUN 12 (6-23) mg/dl Creatinine 0.69 (0.6-1.2) mg/dl Est Cr Clr Drug Dosing 59.1 ml/min Est GFR ( Amer) 99.4 ml/min Est GFR (Non-Af Amer) 85.8 ml/min BUN/Creatinine Ratio 17.4 (10-20) Glucose 196 H (70-99(Fasting)) mg/dl POC Glucose 217 H 163 H (70-99) mg/dl Calcium 9.2 (8.5-10.1) mg/dl Magnesium 1.5 L (1.7-2.4) mg/dl 01/05/22 01/05/22 Range/Units 11:56 08:13 Sodium (136-145) mmol/L Potassium (3.5-5.1) mmol/L Chloride (98-107) mmol/L Carbon Dioxide (21-32) mmol/L Anion Gap (3-11) BUN (6-23) mg/dl Creatinine (0.6-1.2) mg/dl Est Cr Clr Drug Dosing ml/min Est GFR ( Amer) ml/min Est GFR (Non-Af Amer) ml/min BUN/Creatinine Ratio (10-20) Glucose (70-99(Fasting)) mg/dl POC Glucose 129 H 175 H (70-99) mg/dl Calcium (8.5-10.1) mg/dl Magnesium (1.7-2.4) mg/dl PG Care Time/CCT Total # of Minutes Spent Total Time Spent with Patient: Total time spent is greater than 50% in coordination of care (as documented) at patient's floor/unit and/or counseling patient: Coding Level of Care Code 93403 Subseq Obs Care Lvl 3 Diagnoses Primary osteoarthritis of right knee M17.11 Hyponatremia E87.1 HTN (hypertension) I10 HLD (hyperlipidemia) E78.5 Diabetes mellitus E11.9 Depression F32.A Anxiety F41.9 Thyroid nodule E04.1 Hypomagnesemia E83.42 Hypokalemia E87.6
--- NOTE | 2022-01-06 07:47 | Orthopedic Progress Note ---
Date of Service January 06, 2022 Assessment & Plan (1) Primary osteoarthritis of right knee: Plan: Postop day 2 status post right total knee arthroplasty. Hyponatremia/hypokalemia -Case has been discussed with Arabella Perkins PA-C. Plans to start repletion and recheck labs early this afternoon. If her labs are improving, there is a good chance the patient can be discharged to home later today. PT/OT protocols. Weightbearing as tolerated. DVT prophylaxis-aspirin p.o. twice daily, SCDs, JACQUI aleman. Pain management as written. DC planning -[facility] facility have no beds available. Plan for in home PT upon dc. Admission and Anticipated Discharge Date Admission Date: January 04, 2022 Subjective Postop day 2 Patient sitting up at bedside. States that she is feeling much better today. Pain is under control currently. We discussed that her morning labs showed a sodium of 126 and potassium of 3.2. This has been discussed with the hospitalist service. We discussed that they are planning to restart some IV fluids and then recheck her labs later this afternoon. Physical Exam Physical Exam: Silverlon dressing is clean, dry, and intact. Calves are soft and nontender. Neurovascular intact. Toes are mobile. Hemovac has been remove d. Results & Data ([facility]) Vital Signs (Past 12 Hours) Vital Signs Temp Pulse Resp BP Pulse Ox O2 Del Method 01/05/22 23:33 36.9 C 78 17 130/63 93 Room Air Laboratory Results 01/06/22 01/06/22 01/05/22 Range/Units 07:37 06:04 20:41 Sodium 126 L (136-145) mmol/L Potassium 3.2 L (3.5-5.1) mmol/L Chloride 91 L (98-107) mmol/L Carbon Dioxide 27 (21-32) mmol/L Anion Gap 8 (3-11) BUN 12 (6-23) mg/dl Creatinine 0.69 (0.6-1.2) mg/dl Est Cr Clr Drug Dosing 59.1 ml/min Est GFR ( Amer) 99.4 ml/min Est GFR (Non-Af Amer) 85.8 ml/min BUN/Creatinine Ratio 17.4 (10-20) Glucose 196 H (70-99(Fasting)) mg/dl POC Glucose 184 H 217 H (70-99) mg/dl Calcium 9.2 (8.5-10.1) mg/dl Magnesium 1.5 L (1.7-2.4) mg/dl 01/05/22 01/05/22 01/05/22 Range/Units 16:57 11:56 08:13 Sodium (136-145) mmol/L Potassium (3.5-5.1) mmol/L Chloride (98-107) mmol/L Carbon Dioxide (21-32) mmol/L Anion Gap (3-11) BUN (6-23) mg/dl Creatinine (0.6-1.2) mg/dl Est Cr Clr Drug Dosing ml/min Est GFR ( Amer) ml/min Est GFR (Non-Af Amer) ml/min BUN/Creatinine Ratio (10-20) Glucose (70-99(Fasting)) mg/dl POC Glucose 163 H 129 H 175 H (70-99) mg/dl Calcium (8.5-10.1) mg/dl Magnesium (1.7-2.4) mg/dl
[2022-01-06] MEDS: SODIUM CHLORIDE 0.9% 500 ML IV SCH ×2 (07:55→20:55)
[2022-01-06] MEDS: MAGNESIUM SULFATE / D5W 1 GM/100 ML BAG IV SCH ×3 (08:01→12:30)
[2022-01-06] MEDS: DULoxetine HCL 60 MG CAP PO SCH (08:08)
[2022-01-06] MEDS: PANTOprazole 40 MG TAB PO SCH (08:08)
[2022-01-06] MEDS: LOSARTAN POTASSIUM 50 MG TAB PO SCH (08:08)
[2022-01-06] MEDS: MULTIVITAMIN TAB PO SCH (08:08)
[2022-01-06] MEDS: CHOLECALCIFEROL 1,000 UNITS 25 MCG TAB PO SCH (08:09)
[2022-01-06] MEDS: DOCUSATE SODIUM 100 MG CAP PO SCH ×2 (08:09→21:39)
[2022-01-06] MEDS: busPIRone 15 MG TAB PO SCH ×3 (08:09→21:41)
[2022-01-06] MEDS: ASPIRIN 81 MG ECTAB PO SCH ×2 (08:09→21:38)
[2022-01-06] MEDS: amLODIPine BESYLATE 5 MG TAB PO SCH (08:09)
[2022-01-06] MEDS: ASCORBIC ACID 500 MG TAB PO SCH (08:09)
[2022-01-06] MEDS ORDERED: LANTUS PER UNIT CHARGE SQ ONE (08:30)
[2022-01-06] MEDS ORDERED: hydroCHLOROthiazide 25 MG TAB PO SCH (09:00)
[2022-01-06] MEDS: oxyCODONE HCL IR 5 MG TAB (IMMEDIATE RELEASE) PO PRN ×2 (09:02→21:38)
[2022-01-06] MEDS: INSULIN ASPART PER UNIT SC SCH ×4 (09:58→21:40)
--- NOTE | 2022-01-06 12:29 | Pharmacy Report ---
Pharmacy Glycemic Short Note 2 - Date of Service January 06, 2022 - Glycemic Short BSG Results (Last 24 hours): 01/05/22 01/05/22 01/06/22 16:57 20:41 06:04 Glucose 196 H POC Glucose 163 H 217 H 01/06/22 01/06/22 07:37 11:51 Glucose POC Glucose 184 H 237 H OUTPATIENT ANTIDIABETIC REGIMEN: * Sitagliptin 100 mg PO daily HbA1c: 6.4% (12/15/21) ASSESSMENT: 01/06/22: * Patient received total 19 units of insulin yesterday; 7 units basal + 12 units bolus. * BSGs yesterday were [phone] mg/dl. Patient has higher BSG values compared to the day before. * Fasting BSG today was 184 mg/dl. Lantus dose was increased to 10 units this AM. * AM Novolog was given close to 10 am today and pre-lunch BSG check was at 11:51. Novolog morning dose would not have taken full effect by the pre-lunch BSG check. So pre-lunch BSG is elevated at 237 mg/dl. * Novolog CF was tightened this AM and CR tightened for lunch. 01/05/22 * Patient refused basal insulin yesterday, received 5 units of Novolog and BSGs were well-controlled postoperatively at 96 and 85 mg/dL * Fasting BSG of 175 mg/dL, basal insulin ordered again for today and will loosen Novolog parameters in light of tight control last evening 01/04/22 * MH is a 76 year old female s/p right TKA POD #0 * No perioperative steroids administered * Well-controlled T2DM as an outpatient (A1c of 6.4% on sitagliptin only) * Preop BSG of 144 mg/dL and postop BSG of 153 mg/dL * Given elevated fasting BSG, will give conservative basal dose x 1 today with weight-based stress of 2 bolus PLAN FOR INPATIENT GLYCEMIC CONTROL: * Hold outpatient oral diabetes medications * Basal insulin * Lantus 10 units SQ x 1 today AM. * Bolus insulin: tightened CF/CR * NovoLog per scale ACHS or Q6hrs while NPO * Goal Range: Low 110 mg/dL - High 140 mg/dL * Correction Factor: 35 mg/dL/unit * Nutritional / Prandial insulin per carb ratio of 1 unit per 12 grams CHO consumed
[2022-01-06 13:05] LABS: Hematocrit (blood only) 31.3 % (34.1-44.9); Hemoglobin 11.2 g/dl (12.0-16.0); Mean Corpuscular Hemoglobin 29.9 pg (25.0-34.0); Mean Corpuscular Hgb Conc 35.8 g/dL (32.0-36.0); Mean Corpuscular Volume 83.5 fL (80.0-100.0); Mean Platelet Volume 9.1 fL (9.4-12.3); Platelet Count 217 K/uL (130-400); RDW Coefficient of Variation 11.9 % (11.5-14.5); RDW Standard Deviation 35.9 fL (36.4-46.3); Red Blood Count 3.75 M/uL (3.93-5.22); White Blood Count 14.01 K/ul (4.8-10.8)
[2022-01-06 13:20] LABS: BUN Creatinine Ratio 17.5 (10-20); Calcium 9.1 mg/dl (8.5-10.1); Creatinine Clr Calc Pharmacy 64.8 ml/min; Est GFR (African American) 102.4 ml/min; Est GFR (Non-African American) 88.4 ml/min; Magnesium 2.3 mg/dl (1.7-2.4); Potassium 3.5 mmol/L (3.5-5.1)
[2022-01-06] MEDS: SENNA 8.6 MG TAB PO SCH (21:39)
[2022-01-06] MEDS: traZODone HCL 50 MG TAB PO SCH (21:40)
[2022-01-06] MEDS: risperiDONE 0.5 MG TABLET PO SCH (21:40)
[2022-01-06] MEDS: ATORVASTATIN 40 MG TAB PO SCH (21:40)
[2022-01-07] MEDS: SODIUM CHLORIDE 0.9% 500 ML IV SCH ×2 (03:19→03:20)
[2022-01-07] MEDS: ACETAMINOPHEN 500 MG TAB PO SCH (05:16)
[2022-01-07 07:26] LABS: BUN Creatinine Ratio 19.2 (10-20); Calcium 8.1 mg/dl (8.5-10.1); Creatinine Clr Calc Pharmacy 78.5 ml/min; Est GFR (African American) 109.1 ml/min; Est GFR (Non-African American) 94.1 ml/min; Potassium 3.7 mmol/L (3.5-5.1)
[2022-01-07] MEDS: DULoxetine HCL 60 MG CAP PO SCH (08:08)
[2022-01-07] MEDS: LOSARTAN POTASSIUM 50 MG TAB PO SCH (08:08)
[2022-01-07] MEDS: amLODIPine BESYLATE 5 MG TAB PO SCH (08:09)
[2022-01-07] MEDS: ASCORBIC ACID 500 MG TAB PO SCH (08:09)
[2022-01-07] MEDS: CHOLECALCIFEROL 1,000 UNITS 25 MCG TAB PO SCH (08:10)
[2022-01-07] MEDS: PANTOprazole 40 MG TAB PO SCH (08:10)
[2022-01-07] MEDS: ASPIRIN 81 MG ECTAB PO SCH (08:11)
[2022-01-07] MEDS: MULTIVITAMIN TAB PO SCH (08:11)
[2022-01-07] MEDS: DOCUSATE SODIUM 100 MG CAP PO SCH (08:12)
[2022-01-07] MEDS: busPIRone 15 MG TAB PO SCH (08:12)
[2022-01-07] MEDS: hydrOXYzine HCl 25 MG TAB PO PRN (08:18)
--- NOTE | 2022-01-07 08:53 | Orthopedic Progress Note ---
Date of Service January 07, 2022 Assessment & Plan (1) Status post right knee replacement: Plan: 76 yo female stable POD #3 s/p right TKA, improved NA and K 1. Med management 2. DVT prophylaxis- ASA, SCDs 3. PT/OT 4. D/C planning- home w/ HH Admission and Anticipated Discharge Date Admission Date: January 06, 2022 Subjective Pt sitting bedside, looks well, pain controlled Physical Exam Physical Exam: Silverlon dressing in place, calves soft, toes mobile, NVI Results & Data ([facility]) Vital Signs (Past 12 Hours) Vital Signs Temp Pulse Resp BP Pulse Ox O2 Del Method 01/07/22 08:06 82 136/66 01/07/22 07:48 36.4 C L 78 18 144/75 H 99 Room Air 01/06/22 21:16 37.1 C 82 18 143/67 H 96 Room Air Laboratory Results 01/07/22 01/07/22 01/06/22 Range/Units 08:07 06:44 20:38 WBC (4.8-10.8) K/ul RBC (3.93-5.22) M/uL Hgb (12.0-16.0) g/dl Hct (34.1-44.9) % MCV (80.0-100.0) fL MCH (25.0-34.0) pg MCHC (32.0-36.0) g/dL RDW Std Deviation (36.4-46.3) fL RDW Coeff of Vahe (11.5-14.5) % Plt Count (130-400) K/uL MPV (9.4-12.3) fL Sodium 134 L (136-145) mmol/L Potassium 3.7 (3.5-5.1) mmol/L Chloride 103 (98-107) mmol/L Carbon Dioxide 26 (21-32) mmol/L Anion Gap 5 (3-11) BUN 10 (6-23) mg/dl Creatinine 0.52 L (0.6-1.2) mg/dl Est Cr Clr Drug Dosing 78.5 ml/min Est GFR ( Amer) 109.1 ml/min Est GFR (Non-Af Amer) 94.1 ml/min BUN/Creatinine Ratio 19.2 (10-20) Glucose 146 H (70-99(Fasting)) mg/dl POC Glucose 158 H 199 H (70-99) mg/dl Calcium 8.1 L (8.5-10.1) mg/dl Magnesium (1.7-2.4) mg/dl Vitamin B12 (180-914) pg/ml 01/06/22 01/06/22 01/06/22 Range/Units 17:06 12:39 12:39 WBC 14.01 H (4.8-10.8) K/ul RBC 3.75 L (3.93-5.22) M/uL Hgb 11.2 L (12.0-16.0) g/dl Hct 31.3 L (34.1-44.9) % MCV 83.5 D (80.0-100.0) fL MCH 29.9 (25.0-34.0) pg MCHC 35.8 (32.0-36.0) g/dL RDW Std Deviation 35.9 L (36.4-46.3) fL RDW Coeff of Vahe 11.9 (11.5-14.5) % Plt Count 217 (130-400) K/uL MPV 9.1 L (9.4-12.3) fL Sodium (136-145) mmol/L Potassium (3.5-5.1) mmol/L Chloride (98-107) mmol/L Carbon Dioxide (21-32) mmol/L Anion Gap (3-11) BUN (6-23) mg/dl Creatinine (0.6-1.2) mg/dl Est Cr Clr Drug Dosing ml/min Est GFR ( Amer) ml/min Est GFR (Non-Af Amer) ml/min BUN/Creatinine Ratio (10-20) Glucose (70-99(Fasting)) mg/dl POC Glucose 114 H (70-99) mg/dl Calcium (8.5-10.1) mg/dl Magnesium (1.7-2.4) mg/dl Vitamin B12 462 (180-914) pg/ml 01/06/22 01/06/22 Range/Units 12:39 11:51 WBC (4.8-10.8) K/ul RBC (3.93-5.22) M/uL Hgb (12.0-16.0) g/dl Hct (34.1-44.9) % MCV (80.0-100.0) fL MCH (25.0-34.0) pg MCHC (32.0-36.0) g/dL RDW Std Deviation (36.4-46.3) fL RDW Coeff of Vahe (11.5-14.5) % Plt Count (130-400) K/uL MPV (9.4-12.3) fL Sodium 126 L (136-145) mmol/L Potassium 3.5 (3.5-5.1) mmol/L Chloride 93 L (98-107) mmol/L Carbon Dioxide 27 (21-32) mmol/L Anion Gap 6 (3-11) BUN 11 (6-23) mg/dl Creatinine 0.63 (0.6-1.2) mg/dl Est Cr Clr Drug Dosing 64.8 ml/min Est GFR ( Amer) 102.4 ml/min Est GFR (Non-Af Amer) 88.4 ml/min BUN/Creatinine Ratio 17.5 (10-20) Glucose 185 H (70-99(Fasting)) mg/dl POC Glucose 237 H (70-99) mg/dl Calcium 9.1 (8.5-10.1) mg/dl Magnesium 2.3 (1.7-2.4) mg/dl Vitamin B12 (180-914) pg/ml
[2022-01-07] MEDS ORDERED: LANTUS PER UNIT CHARGE SQ SCH (09:00)
[2022-01-07] MEDS: INSULIN ASPART PER UNIT SC SCH (09:16)
[2022-01-07] MEDS: oxyCODONE HCL IR 5 MG TAB (IMMEDIATE RELEASE) PO PRN (09:21)
--- NOTE | 2022-01-07 09:30 | Hospitalist Progress Note ---
Date of Service January 07, 2022 Assessment & Plan (1) Primary osteoarthritis of right knee: Plan: -S/P RIGHT TKA with Dr Marin on 01/04 -Hgb 13.4--> 10.4 acute blood loss anemia from surgery and dilutional from IVF - Asymptomatic -PT/OT/pain management/bowel regimen per primary service -ASA 81mg BID for DVT prophylaxis ordered Electrolyte abnormalities being addressed as below --> Na 126, K 3.2, Mag 1.5 On 01/06. Currently Na At 134, potassium 3.7, and magnesium 2.3 Patient initially anticipated going to SNF. However opted to return home with home services. Discharge plan for today per primary service. No contraindication medically for discharge. (2) Hyponatremia: Plan: -Chronic, ?related to HCTZ use, PCP notes possible consider decreasing dose to 12.5mg if persistent. Plan to DC HCTZ at this time. Patient plans to call her PCP on Sunday of which we discussed possible lower dose of this medication versus an alternative. Especially if issues with hypertension -TSH wnl earlier this year -ECHO normal recently, no evidence of heart failure on exam (3) HTN (hypertension): Plan: -BP stable -Continue losartan 100 mg daily and amlodipine 10 mg daily (4) HLD (hyperlipidemia): Plan: -Remains on atorvastatin 40mg HS (5) Diabetes mellitus: Plan: -Last A1c 6.28 November 2021 -On Januvia 100mg at home, however did have prior overdose attempt as below ISS scale ordered while inpatient, pharmacy managing (6) Depression: Plan: -anxiety and depression -- stable -of note, hospitalized at [facility] from 10/29-11/07 due to increased depression after attempting overdose on Januvia Continues on cymbatla 60mg daily, buspar 10mg TID, risperdal 0.25mg HS, hydroxyzine 25mg BID prn, trazodone 50mg HS (7) Anxiety: Plan: as above, appears stable (8) Thyroid nodule: Plan: -stable nodule on imaging last year -TSH wnl 0.605 May 2021 states she has f/u US for monitoring scheduled in February with PCP Short. also with hx GERD, on protonix 40mg daily Also has +murmur, hx MVP --> echo outpatient prior to surgery acceptable no significant valvular heart disease (9) Hypomagnesemia: Plan: Magnesium was repleted as necessary. Currently at 2.3 (10) Hypokalemia: Plan: - 2nd to HCTZ use, replacement ordered/hctz discontinued, Potassium appropriate this time Plan Thank you for allowing hospitalist to participate in the care of Ms Handley. Plan to be discharged to home by primary service. No contraindication from the medical service for discharge. Order placed for repeat BMP in 1 week with results to PCP. Patient plans to call her PCP office on Sunday to arrange follow-up appointment. Admission and Anticipated Discharge Date Admission Date: January 06, 2022 Supervising Physician Co-Signing Physician Notes PA Supervision Note: I did not personally see or examine the patient today, but I verified all dixon points of DEONTE Andres's assessment and plan with the following exceptions/additions: None Subjective No acute events overnight. Patient states she is feeling well and her pain is controlled. She was up ambulating the hallways this morning. She was noted to have a sodium of 126 yesterday. It is improved to 134 today. She is asymptomatic. She reports her PCP has been monitoring this due to chronic hyponatremia. She self stopped HCTZ in the past but resulted in higher blood pressure readings. She plans to call her PCP on Sunday to discuss either half dose versus an alternative regimen. Currently her blood pressure is appropriate. She anticipates going home today. No medical reason to continue hospitalization at this time. Review of Systems Review of Systems: 10 point review of systems completed. Unremarkable as stated above. Physical Exam Physical Exam: PHYSICAL EXAM General Appearance: WDWN in NAD who is A&O x 3 HEENT: Head is normocephalic/atraumatic; EOMI; PERRLA; Hearing grossly intact; Mucous membranes moist; Pharynx negative for exudate/lesions Neck: Supple; Trachea midline; Neg JVD Heart: RRR with Systolic murmur but negative G/R Lungs: CTA in all lung menard bilaterally; Respirations unlabored; Neg accessory muscle use Abdomen: Soft, non-tender, non-distended; Positive BS x 4 quadrants Extremities: Capillary refill < 2 seconds; Neg cyanosis; Dressing applied to anterior right knee incision with some edema around the knee however no warmth or redness appreciated Neurological: Speech clear; Gross motor/sensory function intact; Neg focal neurologic deficits Psychiatric: Appropriate mood/affect Skin: Normal Color; Warm/Dry; Neg rashes, ecchymosis, lacerations/ulcerations Results & Data Results & Data ([facility]) Vital Signs (Past 12 Hours) Vital Signs Temp Pulse Resp BP Pulse Ox O2 Del Method 01/07/22 08:06 82 136/66 01/07/22 07:48 36.4 C L 78 18 144/75 H 99 Room Air PG Care Time/CCT Total # of Minutes Spent Total Time Spent with Patient: Total time spent is greater than 50% in coordination of care (as documented) at patient's floor/unit and/or counseling patient: Coding Level of Care Code 06153 Inpt Consult Level 2 Diagnoses Primary osteoarthritis of right knee M17.11 Hyponatremia E87.1 HTN (hypertension) I10 HLD (hyperlipidemia) E78.5 Diabetes mellitus E11.9 Depression F32.A Anxiety F41.9 Thyroid nodule E04.1 Hypomagnesemia E83.42 Hypokalemia E87.6
--- NOTE | 2022-01-17 08:51 | Discharge Summary ---
Date of Service January 17, 2022 Admission HPI Per Admitting Provider 76 yo female with PMHx significant for HTN, high cholesterol, DM2, MVP who presents with ongoing right knee pain. Pain is interfering with her daily activities. She has failed conservative measures and would like to proceed with knee replacement. Patient denies headaches, sweats, fevers, chills, double vision, blurred vision, cough, sore throat, dysphagia, chest pain, sob, wheezing, n/v/d/c, numbness, tingling, fatigue, urinary symptoms, mood disorders. ROS positive for right knee pain and stiffness. Admission Exam Per Admitting Provider Constitutional: well developed and well nourished; no acute distress Eyes: PERRL, conjunctivae normal, anicteric sclerae ENMT: external ear and nose normal, oropharynx normal Neck: trachea midline, no thyromegaly Respiratory: normal respiratory effort, lungs clear to auscultation Cardiovascular: RRR, no murmur, no edema Musculoskeletal: right knee: Varus alignment. Mild effusion. Medial joint line and medial and lateral patellar facet tenderness. Positive Fred's, stable to valgus and varus stress. ROM is 0-130 degrees. Skin: no rashes, warm and dry Neurologic: patellar DTR's 2+ bilat, sensation intact Psychiatric: A+Ox3, euthymic affect Principal Diagnosis Right knee osteoarthritis Discharge Data Allergies Allergy/AdvReac Type Severity Reaction Status Date / Time No Known Allergies Allergy Verified 01/04/22 05:33 Consultations 12/30/21 14:25 Consult Hospitalist Routine Procedures Performed Operation Date: 01/04/22 07:15 Actual Procedures p Right Total Knee Arthroplasty(Right) - Javid Marin MD Ordered Studies 01/04/22 05:00 US - OR guided needle placemen Routine Hospital Course (1) Status post right knee replacement: Patient was admitted on the above-noted date and had the above-noted surgery performed which she tolerated well. On her first postoperative day, she was having some mild pain in the knee which she stated was tolerable and not severe. She had been up to the bathroom several times with the help from nursing staff. Dressings were clean, dry, and intact. Calves were soft and nontender. Neurovascular was intact. Toes were mobile. She was started on her PT and OT protocols and continued on DVT prophylaxis and pain management. Patient was planning for intermediate facility upon discharge. Case management was in the process of arranging. Later was found to [facility] intermediate facility did not have any beds available until the following week. Patient decided to choose home health services which was then arranged. Patient had a noted low sodium of 126. Hospitalist service was consulted at the time of her admission and they continue to follow this during her stay. By 01/07/2022 it had come up to 134. She was otherwise progressing with her physical therapy and remaining medically stable and by 01/07/2022, the patient was felt that she was stable for discharge to home with home health services. Total Time Total Time Spent Total Time Spent (In Minutes): 10 Discharge Plan Discharge Items Patient Disposition: Home - Home Health Services Reason For Visit: Unilateral Primary Osteoarthritis, Right Knee Discharge Diagnosis: Right Knee Osteoarthritis Activity: Per Instructions section Weightbearing: Right weightbearing Weightbearing Comment: as tolerated with walker Non-emergency contact: Surgeon Call non-emergency contact if: you have any medication questions, your pain is not controlled, your temperature is above 101.5, your wound has increased redness and your wound has increased drainage Follow-up/Referrals: Saadia Reza-DO Isa [Primary Care Provider] - Javid Marin MD [Surgeon] - (Follow up with Dr Marin in 2 weeks from the day of your surgery for your first post operative visit.) Diet: Carb Consistent or DM2 Ambulatory Orders: Basic Metabolic Panel (Routine) Timeframe: 1 Week Location: Determined by Patient Ordered By: Candice Han Attending Provider Instructions: ACTIVITY RECOMMENDATIONS: SELF CARE INSTRUCTIONS AFTER TOTAL KNEE REPLACEMENT A. You may need to continue a physical therapy program after discharge from the hospital. There are several options available to you. Your doctor will assist you in selecting the best one for you. 1. An out-patient facility 2 to 3 times a week for therapy or home therapy. 2. Continue working on all exercises taught to you in the hospital. Your goals should be to increase bending of your knee to 90 degrees and beyond and to fully straighten your knee. B. You may progress at your own pace from walking with a walker or crutches to a cane; then to no assistive devices. C. Make walking a part of your daily routine. Be up as much as comfortable with rest periods throughout the day. Rest with leg elevation is very important. Use the ice wrap frequently for the first 3-4 weeks. D. There are no restrictions on activities. You may ride in a car, shop, participate in loan documents closer and all social activities. E. Wear the long elastic stockings (JACQUI hose) 20 hours a day for 2 weeks after surgery. They can be removed several times a day for laundering and for a bath. F. You may shower, no tub baths until cleared by your doctor. SPECIAL CARE INSTRUCTIONS: VERY IMPORTANT TO READ AND REVIEW A. There are a few signs you need to watch for after you are home. Call [facility] if you notice any of the followin. Increased severe knee pain. Some pain is expected especially when you exercise. 2. Increased swelling in your leg or knee; pain or swelling of the calf muscle in either lower leg. 3. Any fluid drainage from the incision. 4. Shortness of breath or chest pain. B. Please call [facility] at if you have any concerns or questions about your operation or recovery. The doctor or his nurse will return your call promptly. C. You must take antibiotics before dental work, bladder, bowel or other surgery. Your doctor will provide you with a permanent care to carry describing this precaution. IMPORTANT: * REMEMBER TO TAKE ASPIRIN, 81 MG, TWICE DAILY FOR 4 WEEKS UNLESS OTHERWISE DIRECTED. THIS IS YOUR BLOOD THINNER. * HIGH RISK PATIENTS MAY BE PRESCRIBED A STRONGER BLOOD THINNER. THIS WILL BE PROVIDED AT DISCHARGE. * CALL IF INCREASED PAIN, REDNESS, DRAINAGE OR FEVER GREATER THAT 101. * WEAR JACQUI HOSE 20 HOURS PER DAY FOR 2 WEEKS. * YOU MAY HAVE A LARGE BAND-AID LIKE DRESSING (SILVERON). THIS WILL REMAIN ON YOUR INCISION FOR 7 DAYS, THEN CAN BE REMOVED. IF INCISION IS LEAKING THROUGH DRESSING, CALL THE OFFICE . FOLLOW UP VISIT: If appointment is not already scheduled: Please call [facility] to make a follow-up appointment for 2 weeks after your surgery at . Addtl Line Repairer Provider Instructions: Ms. Handley, you were seen by the hospitalist group due to low salt levels in your blood work. This was likely a combination of losses due to surgery and possibly your blood pressure medication called hydrochlorothiazide. This medication is partially a water pill that can cause you to lose salt in your urine. At this time the plan will be to hold this medication. Recommend to follow-up with your family doctor. It may get restarted in the future possibly at a lower dose. For now to prevent low salt levels we will stop it here. Pending Studies at Discharge: No Stand-Alone Forms: My [facility] [employer], Smoking Cessation Medications and DC Order Prescriptions: New aspirin 81 mg Tablet,Delayed Release (Dr/Ec) 81 mg PO BID 30 Days Qty: 60 0RF acetaminophen [Tylenol Extra Strength] 500 mg Tablet 1,000 mg PO Q8 14 Days Qty: 84 0RF polyethylene glycol 3350 [Miralax] 17 gram powder in packet 17 g PO DAILY PRN (Reason: constipation) Qty: 5 0RF oxycodone 5 mg tablet 5 mg PO Q4H MDD 6 PRN (Reason: pain) Qty: 30 0RF Continued pantoprazole 40 mg tablet,delayed release (DR/EC) 40 mg PO DAILY Qty: 90 3RF buspirone 15 mg tablet 15 mg PO TID Qty: 270 1RF trazodone 50 mg tablet 50 mg PO .qhs Qty: 90 3RF duloxetine 60 mg capsule,delayed release(DR/EC) 60 mg PO QAM Qty: 90 1RF hydroxyzine HCl 25 mg tablet 25 mg PO BID PRN (Reason: Anxiety) multivitamin Tablet 1 tab PO QAM risperidone 0.25 mg tablet 0.25 mg PO .qhs ascorbic acid (vitamin C) 1,000 mg tablet 1 g PO QAM cholecalciferol (vitamin D3) 50 mcg (2,000 unit) capsule 50 mcg PO QAM atorvastatin 40 mg tablet 40 mg PO QPM amlodipine 10 mg tablet 10 mg PO QAM losartan 100 mg tablet 100 mg PO QAM Januvia 100 mg tablet 100 mg PO DAILY alendronate 40 mg Tablet 40 mg PO WK Discontinued tramadol 50 mg tablet 50 mg PO BID PRN (Reason: pain) Qty: 60 0RF hydrochlorothiazide 25 mg tablet 25 mg PO QAM No Action metoprolol succinate 25 mg tablet extended release 24 hr 25 mg PO DAILY Qty: 30 2RF Discharge Orders: Discharge Order (Routine); Ordered 01/07/22 Ordered By: Vinay Klein Admission Data Admit Date/Time: 01/06/22 13:56 Attending Provider: Javid Marin Admit Provider: Javid Marin Primary Care Provider: Saadia Reza Other Providers: Jacques Maki Natalie B. Other Interventions: Discharge Summary Assessment (RN) Last Done: 01/07/22 10:59
== END 2022-01-07 12:11 | disposition home health service (06) | DRG 470 ==
LOC: PACUINP 05:04 → ASU 05:04 → 3E 14:53